=== PATIENT | female | born 1985 | race Caucasian/White ===

== ENCOUNTER → 2017-04-26 | Outpatient (CLI) | payer OTHER ==
[~2017-04-26] MED LIST: BIRTH CONTROL PO
== END ==
LOC: STAR 15:39
PROVIDERS: ATTEND Surgery
DX: Z02.9 Encounter for administrative examinations, unspecified (principal)

== ENCOUNTER 2017-05-06 09:53 | Day surgery (SDC) | payer OTHER ==
[~2017-05-06] VITALS: Ht 165.1 cm; Wt 49.9 kg
[2017-05-06] MEDS ORDERED: LACTATED RINGERS 1,000 ML IV SCH (10:34)
[2017-05-06 10:36] VITALS: BP 109/74
[2017-05-06 11:16] LABS: HCG UR LOT HCG7030192
[2017-05-06] MEDS ORDERED: MIDAZOLAM 1 MG/ML, 2ML ONE (11:18)
[2017-05-06] MEDS ORDERED: FENTANYL PF 100 MCG/2ML ONE ×2 (11:18)
[2017-05-06 11:19] LABS: HCG UR OBC PASS
[2017-05-06] MEDS ORDERED: CEFAZOLIN 1,000 MG ONE ×2 (11:19)
[2017-05-06] MEDS ORDERED: PROPOFOL 10 MG/ML, 20ML ONE (11:19)
[2017-05-06] MEDS ORDERED: EPINEPHRINE 1 MG/ML, 1ML ONE (11:21)
[2017-05-06] MEDS ORDERED: BUPIVACAINE/PF 0.5% ONE (11:21)
[2017-05-06] MEDS ORDERED: ROCURONIUM 10MG/ML,5ML ONE (11:21)
[2017-05-06] MEDS ORDERED: GLYCOPYRROLATE 0.4 MG/2 ML, 2ML ONE ×2 (11:22→14:17)
[2017-05-06] MEDS ORDERED: NEOSTIGMINE 1 MG/ML, 10ML ONE ×2 (11:22→14:17)
[2017-05-06] MEDS ORDERED: ONDANSETRON 2MG/ML, 2ML ONE (11:22)
[2017-05-06] MEDS ORDERED: DEXAMETHASONE 4 MG/ML, 1ML ONE ×5 (11:22→14:19)
[2017-05-06] MEDS ORDERED: BUPIVACAINE/PF-EPI 0.5% 1:200K IM ONE (11:52)
[2017-05-06] MEDS ORDERED: MEPERIDINE/PF 25MG/0.5ML IVPush PRN (12:00)
[2017-05-06] MEDS ORDERED: ACETAMINOPHEN 650 MG/20.3 ML UDC PO PRN (12:00)
[2017-05-06] MEDS ORDERED: FENTANYL PF 100 MCG/2ML IV PRN (12:00)
[2017-05-06] MEDS ORDERED: PROMETHAZINE 25 MG/ML, 1ML IV PRN (12:00)
[2017-05-06] MEDS ORDERED: HYDROmorphone 1 MG/ML, 1ML IV PRN (12:00)
[2017-05-06] MEDS ORDERED: ONDANSETRON 2MG/ML, 2ML IVPush PRN (12:00)
[2017-05-06] MEDS ORDERED: OXYcodone 5 MG/5 ML ORAL.SOL UDC PO PRN (12:00)
[2017-05-06] MEDS ORDERED: HYDROcodone/APAP 7.5-325MG/15ML UDC ONE ×2 (13:45)
[2017-05-06] MEDS ORDERED: HYDROcodone/APAP 7.5-325MG/15ML UDC PO PRN (14:00)
== END 2017-05-06 16:15 ==
LOC: OUT 09:53
PROVIDERS: ATTEND Surgery
DX: K42.9 Umbilical hernia without obstruction or gangrene (principal)
CPT/HCPCS: 49585; 81025; J0171; J0690; J1100; J2250; J2405; J2704; J2710; J3010; J3490; J7120